=== PATIENT | female | born 1980 | race Caucasian/White ===

== ENCOUNTER → 2017-04-05 | Outpatient (CLI) | payer OTHER ==
[~2017-04-05] MED LIST: MECL-62 PO; ZOFR4TAB PO; ZOFR4TAB3 SL
[2017-04-05 10:33] LABS: AUTOMATED NEUTROPHIL # 2.7 TH/MM3 (1.8-7.7); BASOPHIL % 0.5 % (0.0-2.0); EOSINOPHIL # 0.1 TH/MM3 (0-0.4); EOSINOPHIL % 2.7 % (0.0-4.0); HEMATOCRIT 36.5 % (35.0-46.0); HEMOGLOBIN 12.3 GM/DL (11.6-15.3); LYMPH % 33.4 % (9.0-44.0); LYMPHOCYTE # 1.7 TH/MM3 (1.0-4.8); MEAN CELL VOLUME 85.4 FL (80.0-100.0); MEAN CORPUSCULAR HEMOGLOBIN 28.8 PG (27.0-34.0); MEAN CORPUSCULAR HGB CONC 33.7 % (32.0-36.0); MEAN PLATELET VOLUME 7.2 FL (7.0-11.0); MONOCYTE # 0.5 TH/MM3 (0-0.9); NEUT % 53.4 % (16.0-70.0); PLATELET COUNT 283 TH/MM3 (150-450); RED BLOOD COUNT 4.28 MIL/MM3 (4.00-5.30); RED CELL DISTRIBUTION WIDTH 13.3 % (11.6-17.2); WHITE BLOOD COUNT 5.1 TH/MM3 (4.0-11.0)
[2017-04-05 10:48] LABS: ALBUMIN 3.5 GM/DL (3.4-5.0); AST (GOT) 12 U/L (15-37); BICARBONATE 27.1 MEQ/L (21.0-32.0); BLOOD UREA NITROGEN 12 MG/DL (7-18); CALCIUM 8.9 MG/DL (8.5-10.1); CHLORIDE 105 MEQ/L (98-107); CREATININE 0.81 MG/DL (0.50-1.00); GLOMERULAR FILTRATION RATE 79 ML/MIN (>89); GLUCOSE,FASTING 86 MG/DL (74-99); SODIUM (NA) 139 MEQ/L (136-145)
[2017-04-05 10:49] LABS: CHOLESTEROL 172 MG/DL (120-200)
[2017-04-05 11:00] LABS: ALKALINE PHOSPHATASE 62 U/L (45-117); ALT (GPT) 16 U/L (10-53); CHOLESTEROL/ HDL RATIO 3.05 RATIO; HDL CHOLESTEROL 56.3 MG/DL (40.0-60.0); LDL CHOLESTEROL 86 MG/DL (0-99); THYROXINE (T4) 10.1 MCG/DL (4.8-13.9); TOTAL BILIRUBIN ADULT 0.5 MG/DL (0.2-1.0); TOTAL PROTEIN 6.8 GM/DL (6.4-8.2); TRIGLYCERIDES 149 MG/DL (42-150)
[2017-04-05 16:55] LABS: HEMOGLOBIN A1C 5.3 % (4.3-6.0)
== END ==
LOC: PLAB 07:28
PROVIDERS: ATTEND Family Medicine
DX: R53.83 Other fatigue (principal); Z79.899 Other long term (current) drug therapy
CPT/HCPCS: 36415; 80053; 80061; 82306; 83036; 84436; 84443; 84480; 85025